=== PATIENT | male | born 2005 ===

== ENCOUNTER 2024-08-06 08:41 | Emergency (ER) | payer OTHER ==
[~2024-08-06] VITALS: Ht 167.6 cm; Wt 57.6 kg
[2024-08-06 08:47] VITALS: BP 122/78; O2SAT 98
[2024-08-06] MEDS ORDERED: FAMOTIDINE/PF 20 MG/2 ML VIAL ONE ×2 (09:37→09:40)
[2024-08-06] MEDS ORDERED: ONDANSETRON HCL 2 MG/ML VIAL ONE (09:37)
[2024-08-06] MEDS ORDERED: FAMOTIDINE/PF 20 MG/2 ML VIAL IV SCH (09:45)
[2024-08-06] MEDS ORDERED: ONDANSETRON HCL 2 MG/ML VIAL IV SCH (09:45)
[2024-08-06] MEDS ORDERED: DEXTROSE 5 % AND 0.9 % NACL 1,000 ML IV SCH (09:45)
[2024-08-06] MEDS ORDERED: 0.9 % SODIUM CHLORIDE 1,000 ML IV SCH (09:45)
[2024-08-06 10:35] LABS: HEMATOCRIT 42.1 % (39.0-48.0); MEAN CELL VOLUME 84.7 fL (80.0-100.00); MEAN CORPUSCULAR HEMOGLOBIN 30.1 pg (27.00-32.0); MEAN CORPUSCULAR HGB CONC 35.5 g/dl (32.0-36.0); PLATELET COUNT 219 K/uL (150-450); RED BLOOD COUNT 4.97 M/uL (4.00-6.00); RED CELL DISTRIBUTION WIDTH 12.5 % (11.5-14.5)
[2024-08-06 10:53] LABS: PH,URINE 6.5 (5.0-8.0); URINE APPEARANCE Clear; URINE BILIRRUBIN Negative (NEGATIVE); URINE BLOOD Negative; URINE COLOR Yellow; URINE GLUCOSE Negative (NEGATIVE); URINE KETONE Trace (NEGATIVE); URINE LEUKOCYTE Negative; URINE NITRATE Negative; URINE PROTEIN Negative (NEGATIVE)
[2024-08-06 10:56] LABS: ALBUMIN 4.5 gm/dL (3.4-5.0); BILIRUBIN TOTAL 1.06 mg/dL (0.3-1.2); CALCIUM 9.5 mg/dL (8.5-10.1); CREATININE SERUM 0.79 mg/dL (0.70-1.30); GFR 126.35; GLOBULINA 3.3 G/DL (2.4-3.5); POTASSIUM 4.4 mEq/L (3.5-5.1); TOTAL PROTEIN 7.8 gm/dL (6.4-8.2)
[2024-08-06 10:57] LABS: COVID-19 AG NEGATIVE (NEGATIVE)
[2024-08-06 10:58] LABS: URINE BACTERIA 112.6 uL (0.0-1933); URINE EPITHELIAL CELLS 4.2 uL (0.0-38.8); URINE WBC 3.3 uL (0.0-23.2)
[2024-08-06 10:58] LABS: INFLUENZA A AG NEGATIVE (NEGATIVE)
[2024-08-06 11:12] LABS: URINE CAST 0.14 uL (0.0-1.40)
== END 2024-08-06 14:46 | disposition home or self-care (01) ==
LOC: EMR PED 10:11
PROVIDERS: Emergency Medicine Pediatric Emergency Medicine
DX: K29.60 Other gastritis without bleeding (principal); E86.0 Dehydration; Z20.822 Contact with and (suspected) exposure to COVID-19